=== PATIENT | female | born 1960 | race Caucasian/White ===

== ENCOUNTER 2025-07-18 00:23 | Day surgery (SDC) | payer OTHER, SELFPAY ==
[2025-07-11 13:48] VITALS: BMI 29.2
--- NOTE | 2025-07-11 13:57 | PC.NURSE ---
[facility] has started construction of its new state of the art ER which will open Spring 2026. With this, we anticipate parking may be a challenge for some our surgical patients and families. Parking spaces are limited but are available for all Surgical, obstetrics, and ER patients sharing this lot. If you arrive and find you are having a hard time finding a parking space, please note that we understand the challenges, please drive around the hospital and park near Hospital Entrance 1. When you enter this entrance, you can ask a volunteer to direct or take you back to the surgical waiting area to check in. We appreciate everyone?s understanding of these expected challenges while we build for your future. Report to the Outpatient Waiting Room, entrance under the green pavilion located off [address], at time _0915_ on date _[phone]_. Planned Procedure Time: _1115_.? Time changes happen often and if your time is changed the preop area will call you the afternoon before. - You and your visitor will be asked to self-screen and do not enter if you have any COVID symptoms. Please call surgeon if you need to reschedule. - A mask is optional within the hospital at this time. Patients may have clear liquids (water, carbonated beverages, clear teas, apple juice) until 3 hours prior to surgery with a maximum of 20 ounces. - No food from midnight until time of surgery and no smoking, or chewing tobacco (or any form of nicotine). No chewing gum, candy or mints. Take only the following medications with a SIP of water on the morning of surgery: ___Atenolol____ DO NOT STOP ANY OF YOUR OTHER PRESCRIPTION MEDICATIONS PRIOR TO SURGERY EXCEPT THE FOLLOWING Hold all vitamins and supplements for 3 days per anesthesiologist. Medications to discontinue per physician Date to take last dose____ Please no make-up, nail yi, hairspray, perfume, deodorant, or body powder the day of surgery.? No jewelry (including any body piercings) or valuables the day of surgery, leave them at home.? Please take a shower or bath the night before, or the morning of, surgery with an antibacterial soap.? Wear comfortable, loose fitting clothing.? - Jewelry must be removed prior to entering the operating room.? Rings and piercings that are not removed may be cut off. - The hospital will not accept responsibility for valuables.? - Please leave all valuables, including medications, at home the day of surgery. If you are going home after surgery, a licensed solo truck driver must drive you home.? - NO public transportation without another adult if you receive anesthesia. - We recommend that an adult stay with you for 24 hours following discharge. - We also recommend that you do not drive, make important decision, drink alcoholic beverages, or take any drugs that were not prescribed by your health care provider for at least 24 hours after your discharge time. Follow any additional instructions given to you from your surgeon. Telephone instructions given to _Anita___and asked if any additional questions and then verbalized understanding. Patient advised to call surgeon office or pre surgery nurse liaison [phone] if any additional questions.
--- NOTE | 2025-07-11 14:06 | PC.NURSE ---
[facility] has started construction of its new state of the art ER which will open Spring 2026. With this, we anticipate parking may be a challenge for some our surgical patients and families. Parking spaces are limited but are available for all Surgical, obstetrics, and ER patients sharing this lot. If you arrive and find you are having a hard time finding a parking space, please note that we understand the challenges, please drive around the hospital and park near Hospital Entrance 1. When you enter this entrance, you can ask a volunteer to direct or take you back to the surgical waiting area to check in. We appreciate everyone?s understanding of these expected challenges while we build for your future. Report to the Outpatient Waiting Room, entrance under the green pavilion located off [address], at time _0915_ on date _[phone]_. Planned Procedure Time: _1115_.? Time changes happen often and if your time is changed the preop area will call you the afternoon before. - You and your visitor will be asked to self-screen and do not enter if you have any COVID symptoms. Please call surgeon if you need to reschedule. - A mask is optional within the hospital at this time. Patients may have clear liquids (water, carbonated beverages, clear teas, apple juice) until 315am prior to surgery with a maximum of 20 ounces. Nothing to drink after 315am. - No food from midnight until time of surgery and no smoking, or chewing tobacco (or any form of nicotine). No chewing gum, candy or mints. Take only the following medications with a SIP of water on the morning of surgery: ___Atenolol____ DO NOT STOP ANY OF YOUR OTHER PRESCRIPTION MEDICATIONS PRIOR TO SURGERY EXCEPT THE FOLLOWING Hold all vitamins and supplements for 3 days per anesthesiologist. Medications to discontinue per physician Date to take last dose____ Please no make-up, nail palauan, hairspray, perfume, deodorant, or body powder the day of surgery.? No jewelry (including any body piercings) or valuables the day of surgery, leave them at home.? Please take a shower or bath the night before, or the morning of, surgery with an antibacterial soap.? Wear comfortable, loose fitting clothing.? - Jewelry must be removed prior to entering the operating room.? Rings and piercings that are not removed may be cut off. - The hospital will not accept responsibility for valuables.? - Please leave all valuables, including medications, at home the day of surgery. If you are going home after surgery, a licensed otr company driver must drive you home.? - NO public transportation without another adult if you receive anesthesia. - We recommend that an adult stay with you for 24 hours following discharge. - We also recommend that you do not drive, make important decision, drink alcoholic beverages, or take any drugs that were not prescribed by your health care provider for at least 24 hours after your discharge time. Follow any additional instructions given to you from your surgeon. Telephone instructions given to __Anita__and asked if any additional questions and then verbalized understanding. Patient advised to call surgeon office or pre surgery nurse liaison [phone] if any additional questions.
[2025-07-18] VITALS (8 sets, daily range): BP systolic 86–173; BP diastolic 47–78; PULSE 56–68; RESP 12–19; TEMP 36.3–37.1; O2SAT 97–100
--- NOTE | 2025-07-18 06:56 | WPDHPUPDATE1 ---
History and Physical Update Update Date/Time: 07/18/25 06:56 Patient seen and examined in pre-operative holding area. No interval change in medical history or symptoms. Patient recalls previous discussion of benefits and alternatives to procedure. Continues to desire to proceed with excisional biopsy right lower eyelid lesion . Reviewed procedure, post-op expectations and risks including but not limited to bleeding, infection, asymmetry, undesireable cosmetic appearance, recurrence or incomplete excision, ectropion entropion, vision changes. I discussed the possible use of assistants and their participation in the case. Patient stated understanding and signed the consent form wishing to proceed.
--- NOTE | 2025-07-18 06:57 | W.PM.PROC2 ---
Procedure Note - Detailed Date of Procedure 07/18/25 Pre-op Diagnosis right lower eyelid lesion Post-op Diagnosis Same Procedure Performed excisional biopsy right lower eyelid lesion and local adjacent tissue transfer flap closure Surgeon Gavi Hartman MD Actuary Veronica Pearson PA-C Anesthesia General Description of Procedure INFORMED CONSENT: The patient was seen and examined and marked in the pre-op area.? The patient signed the consent form. PROCEDURE IN DETAIL:The patient taken back to OR on the stretcher in supine position. Time out performed with anesthesia, surgeon and staff agreeing on patient's name site and surgery to be performed SCDs were placed on the lower extremities and inflated. After general anesthesia was administered I injected {2}cc 1%lido with epi and 0.5% marcaine plain at the operative site The site was prepped with ophthalmic betadine and prepped in sterile fashion. Corneal shield was placed. I proceeded with making a wedge excision of the lesion involving lower lid margin with 1mm margins using 15 blade and excised this lesion off tarsal plate and anterior lamella. I irrigated with vss and hemostasis with bovie. The defect measured 1.1cm. To allow for closure I excised skin iferiorly as well as on conjunctivae to create a bilateral advancement flap and avoid dog ears. Excision of these burrows triangles were done with 15 blade. 5-0 vicryl was used to approximate lid margin and dermis. 5-0 fast was used to repair lid margin and then 5-0 chromic for lower eyelid skin. There was good alignement and approximation of lide margin and no impingnement on the eye. Corneal shield was removed and eye rinsed with VSS and lacrilube placed. A dressing of steri-strip on lower part of incision was followed by eye patch pressure dressing was placed. The patient was then awaken from anesthesia and transferred to the recovery room in stable condition.? Complications - none EBL- 1cc Disposition - home in stable condition Veronica Pearson PA-C was essential for positioning, retraction, closure and dressing placement. [facility] [place] Billing Surgery - Charge Forward: Surgery Billing ([id number] for veronica)
[2025-07-18] MEDS: ACETAMINOPHEN 500 MG TABLET 1000 MG PO (09:55)
[2025-07-18] MEDS: LACTATED RINGERS 1,000 ML 30 ML IV CONT (10:00)
--- NOTE | 2025-07-18 10:22 | WPDANESEPPF ---
Anes - Initial Pre Proc Eval Procedure: Operation Date: 07/18/25 11:15 Proposed Procedures p Excision Right Lower Eyelid Lesion - Gavi Hartman MD Date/Time: 07/18/25 10:22 Surgeon: Gavi Hartman MD Pre Op Diagnosis: lesion of face Patient Data Age: 64 Gender: F Height: 1.6 m Weight: 76.5 kg Last Vital Signs Temp 98.7 F 07/18/25 09:35 Pulse 63 07/18/25 09:35 Resp 16 07/18/25 09:35 BP 173/77 H 07/18/25 09:35 Pulse Ox 100 07/18/25 09:35 O2 Del Method Room Air 07/18/25 09:35 Allergies Allergy/AdvReac Type Severity Reaction Status Date / Time No Known Allergies Allergy Verified 07/18/25 09:42 Home Medications ?Medication ?Instructions ?Recorded ?Confirmed ?Type atenolol 100 mg tablet 100 mg PO DAILY 07/11/25 07/18/25 History multivitamin (Daily Multi-Vitamin 1 tablet PO DAILY 07/11/25 07/18/25 History tablet) Patient hx anesthesia problems: none Family hx anesthesia problems: none Results Review: All pre-operative results and documents have been reviewed as part of the pre-operative evaluation. [facility] Social History Social History Smoking status: Never smoker Alcohol intake: never Substance use: never Substance use type: does not use Living arrangements: with family Spiritual care concerns: No Anes - Eval Final PreProcedure Day of Procedure 07/18/25 10:22 Patient weight: overweight Lungs: normal air movement Airway: Mallampati scale class II and special considerations (Upper palatal torus noted. ) Neurological: alert and oriented Last oral intake: >/= 8 hours ASA classification: II Emergent: no Anesthetic plan: proceed Anesthesia type and monitoring: general LMA and standard monitoring Results Review: All pre-operative results and documents have been reviewed as part of the pre-operative evaluation. HTN, active director pediatric, no cp or sob. Informed Consent: The patient's anesthetic plan and its attendant risks and benefits were discussed with the patient/family/POA. Questions were solicited and answers provided to the satisfaction of the patient/family/POA.
[2025-07-18] MEDS: ceFAZolin 2 GM in SODIUM CHLORIDE 0.9% IV 50 ML 100 ML IVPB (10:53)
--- NOTE | 2025-07-18 11:07 | S_PTH ---
PATIENT: Anita Hudson LOC: [facility] U#:[id number] AGE/SX: 64/F ROOM: RE07/18/[address]: Gavi Hartman MD : [id number] BED: DIS: 07/18/2025 SPEC #: [id number] RECD: 07/18/25 13:09 STATUS: EDWARD GARCIA #: [id number] RUSSEL: 07/18/25 11:[address]: Gavi Hartman DEPT: [facility] Surgical RECD BY: Roxanne Limon ENTERED: 07/18/25 13:09 SP TYPE: Surgical OTHR DR: JEANE,LETTY Barnes Tissues: A - Skin Procedures: Hematoxylin and Eosin Stain Gross and Microscopic Level 4
[2025-07-18] MEDS: LIDO 1%/EPINEPHRINE 1:100,000 50 ML VIAL (11:16)
[2025-07-18] MEDS: NEOMYCIN/POLYMYXIN/BACITRACIN OPHTH OINTMENT 3.5 GM TUBE 1 APPLIC EACH EYE (11:19)
== END 2025-07-18 13:00 | disposition home or self-care (01) ==
PROVIDERS: PCP Family Medicine; Visit Provider Plastic Surgery
PROC: (CPT 14060; principal; 2025-07-18 11:15)
DX: H02.89 Other specified disorders of eyelid (principal); L73.8 Other specified follicular disorders; I10 Essential (primary) hypertension
CPT/HCPCS: 14060; 88305; J0690; A9270; J1100; J2003; J2004; J2250; J2405; J2704; J3010; J7120